=== PATIENT | male | born 1950 | race Caucasian/White ===

== ENCOUNTER → 2018-03-14 | Outpatient (CLI) | payer OTHER ==
[2018-03-14 21:20] LABS: HEMATOCRIT 46.3 % (42.0-52.0); HEMOGLOBIN 15.4 g/dl (13.5-17.5); MEAN CORPUSCULAR HEMOGLOBIN 30.9 pg (27.0-33.0); MEAN CORPUSCULAR HGB CONC 33.3 g/dl (32.0-36.5); MEAN CORPUSCULAR VOLUME 92.8 fl (80.0-96.0); PLATELET COUNT, AUTOMATED 199 10^3/uL (150-450); RED BLOOD COUNT 4.99 10^6/uL (4.30-6.10)
[2018-03-14 21:21] LABS: URINE TOTAL PROTEIN 15.8 MG/DL (0-12)
[2018-03-14 21:22] LABS: INR 1.31; PROTHROMBIN TIME 16.5 SECONDS (12.1-14.4)
[2018-03-14 21:33] LABS: C REACTIVE PROTEIN QUANTITATIV < 0.30 MG/DL (0.00-0.30); TOTAL PROTEIN 6.8 GM/DL (6.4-8.2)
[2018-03-14 21:34] LABS: HEMOGLOBIN A1c 5.8 %
[2018-03-14 21:35] LABS: FOLATE 7.7 NG/ML (>5.4); VITAMIN B12 LEVEL 932 PG/ML (247-911)
[2018-03-16 11:28] LABS: UPEP INTERPRETATION NO M-SPIKE NOTED; URINE VOLUME RANDOM ML
[2018-03-16 13:58] LABS: ALBUMIN 4.09 GM/DL (3.29-5.55); ALBUMIN % 60.1 % (55.8-66.1)
[2018-03-16 13:59] LABS: ALPHA-1-GLOBULINS 0.27 GM/DL (0.17-0.41); ALPHA-2-GLOBULINS 0.67 GM/DL (0.42-0.99); ALPHA-2-GLOBULINS % 9.8 % (7.1-11.8); BETA-1-GLOBULINS 0.43 GM/DL (0.28-0.60); BETA-1-GLOBULINS % 6.3 % (4.7-7.2); BETA-2-GLOBULINS 0.44 GM/DL (0.19-0.55); BETA-2-GLOBULINS % 6.5 % (3.2-6.5); GAMMA GLOBULIN % 13.3 % (11.1-18.8)
[2018-03-20 14:14] LABS: ANTINUCLEAR ANTIBODIES DIRECT Negative (Negative); HLA-B27 Negative (.); Lyme Disease IgG/IgM Antibodie <0.91 ISR (0.00-0.90); Lyme Disease IgM Ab Quantitati <0.80 index (0.00-0.79)
== END ==
LOC: M WUC 16:26
PROVIDERS: ATTEND Physician Assistant
DX: Z01.812 Encounter for preprocedural laboratory examination (principal)

== ENCOUNTER → 2018-04-04 | Outpatient (CLI) | payer OTHER ==
[2018-04-04 15:56] LABS: INR 0.96; PARTIAL THROMBOPLASTIN TIME 29.2 SECONDS (25.4-37.6); PROTHROMBIN TIME 12.9 SECONDS (12.1-14.4)
== END ==
LOC: M WUC 14:17
PROVIDERS: ATTEND Physical Medicine & Rehabilitation
DX: Z01.812 Encounter for preprocedural laboratory examination (principal)

== ENCOUNTER → 2018-07-20 | Outpatient (REF) | payer OTHER | LOC: M LAB REF 17:01 | PROVIDERS: ATTEND Internal Medicine | DX: J02.9 Acute pharyngitis, unspecified (principal) ==

== ENCOUNTER 2018-08-10 21:39 | Emergency (ER) | payer OTHER ==
[~2018-08-10] VITALS: Ht 180.3 cm; Wt 110.9 kg
[2018-08-10] MEDS ORDERED: latanoprost (21:57)
[2018-08-10] MEDS ORDERED: DORZ2SOL4 (21:57)
[2018-08-10] MEDS ORDERED: LOSA100T50 (21:57)
[2018-08-10] MEDS ORDERED: GABA-843 (21:57)
[2018-08-10 22:20] LABS: BASO # 0.1 10^3/uL (0.0-0.2); BASO % 0.6 % (0.0-1.0); EOS # 0.2 10^3/uL (0.0-0.50); HEMATOCRIT 35.6 % (42.0-52.0); HEMOGLOBIN 12.3 g/dl (13.5-17.5); LYMPH # 0.9 10^3/uL (1.5-4.5); LYMPH % 9.9 % (24.0-44.0); MEAN CORPUSCULAR HEMOGLOBIN 31.8 pg (27.0-33.0); MEAN CORPUSCULAR HGB CONC 34.6 g/dl (32.0-36.5); MONO # 1.3 10^3/uL (0.0-0.8); MONO % 14.1 % (0.0-5.0); NEUTROPHILS # 6.6 10^3/uL (1.8-7.7); NEUTROPHILS % 73.1 % (36.0-66.0); PLATELET COUNT, AUTOMATED 223 10^3/uL (150-450); RED BLOOD COUNT 3.87 10^6/uL (4.30-6.10); WHITE BLOOD COUNT 9.1 10^3/uL (4.0-10.0)
[2018-08-10] MEDS ORDERED: GI COCKTAIL 50ML BTL(HYOSCYAMINE/MAALOX/LIDOCAINE VISCOUS)(1:3:1) PO ONE (22:30)
[2018-08-10 22:47] LABS: ALBUMIN 2.7 GM/DL (3.2-5.2); ALT/SGPT 74 U/L (12-78); BILIRUBIN,DIRECT 0.2 MG/DL (0.0-0.2); BILIRUBIN,TOTAL 0.4 MG/DL (0.2-1.0); BLOOD UREA NITROGEN 14 MG/DL (7-18); CARBON DIOXIDE LEVEL 21 MEQ/L (21-32); CHLORIDE LEVEL 109 MEQ/L (98-107); CPK CREATINE PHOSPHOKINASE 209 U/L (39-308); CREATININE FOR GFR 0.98 MG/DL (0.70-1.30); GLOMERULAR FILTRATION RATE > 60.0 (>49); GLUCOSE, FASTING 116 MG/DL (70-100); MB/CK RELATIVE INDEX 0.91 (< OR =4); POTASSIUM SERUM 3.8 MEQ/L (3.5-5.1); SODIUM LEVEL 139 MEQ/L (136-145); TOTAL PROTEIN 6.5 GM/DL (6.4-8.2); TROPONIN I 0.03 NG/ML (< 0.10)
[2018-08-10] MEDS ORDERED: NS 500 ML IV ONE (23:15)
[2018-08-10] MEDS ORDERED: KETOROLAC 30 MG/ML VIAL (J1885) IV ONE (23:30)
[2018-08-10] MEDS ORDERED: ISOVUE-370 76% 100ML VIAL (Q9967) As Ordered ONE (23:40)
[2018-08-11] MEDS ORDERED: IPRATROPIUM 0.5MG/ALBUTEROL 2.5MG INH SOL UD 3ML (DUONEB)(J7620) NEB ONE (01:00)
--- NOTE | 2018-08-11 01:04 | REPVR ---
EXAM: CT Angiography Chest With Contrast EXAM DATE/TIME: 08/10/2018 11:46 PM CLINICAL HISTORY: 67 years old, male; Chest pain; Type not specified TECHNIQUE: Imaging protocol: Axial computed tomographic angiography images of the chest with intravenous contrast using CT angiography protocol. Coronal and sagittal reformatted images were created and reviewed. 3D rendering: MIP reconstructed images were created and reviewed. Radiation optimization: All CT scans at this facility use at least one of these dose optimization techniques: automated exposure control; mA and/or kV adjustment per patient size (includes targeted exams where dose is matched to clinical indication); or iterative reconstruction. Contrast material: ISOVUE 370; Contrast volume: 100 ml; Contrast route: IV COMPARISON: CR PORTABLE CHEST X-RAY 08/10/2018 10:16 PM FINDINGS: Peripheral pulmonary artery evaluation limited by cardiac and respiratory motion artifact. Central pulmonary arteries show no intraluminal defect suggestive of clot. No thoracic aortic aneurysm or dissection. No pleural effusion or pneumothorax. Pulmonary vascular/interstitial pattern does not suggest active pulmonary edema. No evidence of pericardial effusion of significance. No suspicious lung mass or air space process. No central endobronchial lesion. Atelectasis is present at the lung bases. Bony structures show no acute fracture or destructive process. Limited visualization of upper abdomen shows no concerning finding. IMPRESSION: No evidence of acute, central pulmonary embolus. Peripheral vessel evaluation is limited by motion No other acute or concerning focal intrathoracic abnormality. Small hiatal hernia. This can be a source of chest pain in the setting of GE reflux Electronically signed by: Tom Nielsen On 08/11/2018 01:03:59 AM
[2018-08-11] MEDS ORDERED: dexameTHASONE 20 MG/5 ML VIAL (J1100) IV ONE (01:15)
--- NOTE | 2018-08-11 02:10 | REP ---
Clinical: Acute chest pain . Comparison: 08/08/2018 . Findings: The mediastinum and cardiac silhouette are stable and within normal limits for portable technique. Trace left basilar atelectasis cannot be excluded along with possible small pleural reaction. No focal consolidation. No significant effusion. No pneumothorax. Skeletal structures are intact. Impression: Cannot exclude trace left basilar atelectasis and small pleural reaction. Electronically Signed by Omer Howell MD 08/11/2018 02:02 A
[2018-08-11 02:49] VITALS: BP 105/60
[2018-08-11 02:51] LABS: MB/CK RELATIVE INDEX 0.71 (< OR =4); TROPONIN I 0.03 NG/ML (< 0.10)
--- NOTE | 2018-08-12 08:26 | ECGEPIP ---
[facility] - ED Test Date: 2018-08-10 Pat Name: LUAN BEDOYA Department: Room: - Gender: Male Assistant Teaching Professor: miguelito : 1950 Requested By: THOM Krishna Order Number: [id number] Reading MD: Esvin Alva Measurements Intervals [place] Rate: 100 P: 46 GA: 152 QRS: QRSD: 101 T: 39 QT: 338 QTc: 437 Interpretive Statements SINUS TACHYCARDIA Left axis deviation Comparison tracing not on file Electronically Signed on 08-12-2018 8:26:36 EDT by Esvin Alva
--- NOTE | 2018-08-12 08:34 | ECGEPIP ---
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
== END 2018-08-11 03:47 | disposition home or self-care (01) ==
LOC: M ED 21:39
DX: R07.9 Chest pain, unspecified (principal); R00.0 Tachycardia, unspecified; K44.9 Diaphragmatic hernia without obstruction or gangrene; I10 Essential (primary) hypertension; D64.9 Anemia, unspecified; Z87.891 Personal history of nicotine dependence; Z79.899 Other long term (current) drug therapy
CPT/HCPCS: 71045; 71275; 80048; 80076; 81001; 82550; 82553; 84484; 85025; 86140; 87040; 87486; 87581; 87633; 87798; 93005; 93041; 94640; 94760; 96361; 96374; 96375; 99285; J1100; J1885; Q9967

== ENCOUNTER → 2018-09-18 | Outpatient (REF) | payer OTHER ==
[~2018-09-18] MED LIST: DORZ2SOL4; GABA-843; LOSA100T50; latanoprost
[2018-09-18 12:46] LABS: PERCENT SATURATION 30.8 % (19.7-50.0)
== END ==
LOC: M LAB REF 12:18
PROVIDERS: ATTEND Internal Medicine
DX: D64.9 Anemia, unspecified (principal)

== ENCOUNTER → 2020-11-21 | Outpatient (CLI) | payer OTHER ==
[~2020-11-21] MED LIST changes: +ACET-897 PO; +DSS100CA PO; +ECOT81TA5 PO; +FISH1000 PO; +GABA-282; -GABA-843; +LATA0.0015; +NAPR-885 PO; +PREG150C; +PRESCAP PO; +[UNRECOGNIZED DRUG - CODE] PO
== END ==
LOC: M LABSMTC 10:37
PROVIDERS: ATTEND Anesthesiology
DX: Z01.812 Encounter for preprocedural laboratory examination (principal); Z20.822 Contact with and (suspected) exposure to COVID-19

== ENCOUNTER 2020-11-26 08:28 | Day surgery (SDC) | payer BC ==
[~2020-11-26] VITALS: Ht 180.3 cm; Wt 102.1 kg
[~2020-11-26 08:28] MED LIST changes: +LIDOCAINE 2% 100MG/5ML SDV (FOR ANES.) As Ordered ONE; +NS 1,000 ML IV ONE; +propofoL 200 MG/20 ML VIAL As Ordered ONE
--- NOTE | 2020-11-26 10:46 | ROOR ---
Patient Name: Arron Dietz Procedure Date: 11/26/2020 10:20 AM Date of : 1950 Age: 70 Room: [facility] Gender: Male Note Status: Finalized Procedure: Total Colonoscopy to Cecum Indications: High risk colon cancer surveillance: Personal history of colonic polyps, Last colonoscopy: 2011 Providers: Guillermo Galeano MD Referring MD: CASSY KOHLER JR, MD Requesting Provider: Medicines: Monitored Anesthesia Care Complications: No immediate complications. Procedure: Pre-Anesthesia Assessment: - The heart rate, respiratory rate, oxygen saturations, blood pressure, adequacy of pulmonary ventilation, and response to care were monitored throughout the procedure. The Colonoscope was introduced through the anus and advanced to the cecum, identified by appendiceal orifice and ileocecal valve. The colonoscopy was performed without difficulty. The patient tolerated the procedure well. The quality of the bowel preparation was excellent. Findings: The perianal and digital rectal examinations were normal. Non-bleeding internal hemorrhoids were found during retroflexion. The hemorrhoids were small and Grade I (internal hemorrhoids that do not prolapse). No other significant abnormalities were identified in a careful examination of the remainder of the colon. The exam was otherwise without abnormality on direct and retroflexion views. Impression: - Non-bleeding internal hemorrhoids. - The examination was otherwise normal on direct and retroflexion views. - No specimens collected. - The exam was otherwise normal to the cecum. Recommendation: - Patient has a contact number available for emergencies. The signs and symptoms of potential delayed complications were discussed with the patient. Return to normal activities tomorrow. Written discharge instructions were provided to the patient. - High fiber diet. - Discharge patient to home. - Continue present medications. - Repeat colonoscopy is not recommended for surveillance. - Return to referring physician. - The findings and recommendations were discussed with the patient. Procedure Code(s): --- Professional --- G0105, Colorectal cancer screening; colonoscopy on individual at high risk Diagnosis Code(s): --- Professional --- Z86.010, Personal history of colonic polyps K64.0, First degree hemorrhoids CPT copyright 2019 [employer]. All rights reserved. The codes documented in this report are preliminary and upon bronze plater review may be revised to meet current compliance requirements. Guillermo Galeano MD Guillermo Galeano MD 11/26/2020 10:46:09 AM Electronically signed by Guillemro Galeano MD Number of Addenda: 0 Note Initiated On: 11/26/2020 10:20 AM Estimated Blood Loss: Estimated blood loss: none.
[2020-11-26 11:00] VITALS: BP 125/85
== END 2020-11-26 11:11 | disposition home or self-care (01) ==
LOC: M OPP 08:28
PROVIDERS: ATTEND Internal Medicine Gastroenterology
DX: Z12.11 Encounter for screening for malignant neoplasm of colon (principal); Z86.010 Personal history of colon polyps; K64.0 First degree hemorrhoids; Z79.82 Long term (current) use of aspirin; Z79.899 Other long term (current) drug therapy; Z88.8 Allergy status to other drugs, medicaments and biological substances; Z87.891 Personal history of nicotine dependence

== ENCOUNTER → 2020-12-12 | Outpatient (REF) | payer BC ==
[~2020-12-12] MED LIST changes: -LIDOCAINE 2% 100MG/5ML SDV (FOR ANES.) As Ordered ONE; -NS 1,000 ML IV ONE; -propofoL 200 MG/20 ML VIAL As Ordered ONE
[2020-12-12 17:07] LABS: BLOOD UREA NITROGEN 13 MG/DL (7-18); GLOMERULAR FILTRATION RATE > 60.0 (>42)
== END ==
LOC: M WUC 15:40
PROVIDERS: ATTEND Pain Medicine Interventional Pain Medicine
DX: M96.1 Postlaminectomy syndrome, not elsewhere classified (principal)

== ENCOUNTER → 2020-12-19 | Outpatient (CLI) | payer BC ==
--- NOTE | 2020-12-19 16:47 | REPVR ---
PROCEDURE INFORMATION: Exam: MR Lumbar Spine Without and With Contrast Exam date and time: 12/19/2020 3:24 PM Age: 70 years old Clinical indication: Low back pain; Prior surgery; Surgery date: 6+ months; Surgery type: Laminectomy; Additional info: Post laminectomy syndrome TECHNIQUE: Imaging protocol: Multiplanar magnetic resonance images of the lumbar spine without and with intravenous contrast. Contrast material: PROHANCE; Contrast volume: 20 ml; Contrast route: INTRAVENOUS (IV); COMPARISON: No relevant prior studies available. FINDINGS: Vertebrae: Unremarkable. Spinal cord: Normal signal. No cord compression. Straightening of normal lumbar lordosis. Grade 1 spondylolisthesis L2-L3 with 3.2 mm retrolisthesis L3 with respect to L2. Grade 1 spondylolisthesis L3-L4 with the 4.6 mm anterolisthesis L4 with respect L3. Previous laminectomy at L2, L3 and L4. Loss of normal T2 signal within the intervertebral discs at L1-L2, L4-L5 and L5-S1 reflects disc desiccation. L1-L2: No significant disc disease.. No significant spinal canal stenosis. No neural foraminal stenosis. L2-L3: Narrowed intervertebral disc space. Broad-based posterior disc bulge with the right posterolateral disc protrusion that narrows the right lateral recess and impresses upon the ventral margin of the thecal sac there is narrowing of the left lateral recess.. There is enhancement of the facet joints.. No significant spinal canal stenosis. Moderate to severe right foraminal stenosis. . L3-L4: Circumferential annulus bulge. Narrowed lateral recesses bilaterally.. No significant spinal canal stenosis. Mild to moderate bilateral foraminal stenosis. L4-L5: Circumferential annulus bulge. Hypertrophic facet arthropathy and hypertrophy of the ligamentum flavum. Moderate narrowing left lateral recess. There is enhancement of the facet joints.. No significant spinal canal stenosis. Mild to moderate left foraminal stenosis. L5-S1: No significant disc disease. No significant spinal canal stenosis. No neural foraminal stenosis. Soft tissues: Infrarenal para-aortic lymph node measuring 3 x 2.2 cm IMPRESSION: 1. Postoperative changes within the lumbar spine with no evidence of abscess or epidural fluid accumulation. 2. Right posterolateral disc protrusion at L2-L3 with narrowing of the right lateral recess and right foraminal stenosis. 3. Multilevel degenerative disc disease and facet arthropathy as described above Electronically signed by: Rosario Joseph On 12/19/2020 16:47:12 PM
== END ==
LOC: M PLARAD 13:47
PROVIDERS: ATTEND Pain Medicine Interventional Pain Medicine
DX: M96.1 Postlaminectomy syndrome, not elsewhere classified (principal)

== ENCOUNTER → 2021-12-23 | Outpatient (REF) | payer BC ==
[~2021-12-23] MED LIST changes: +LOSA100T45; -LOSA100T50
== END ==
LOC: M LAB REF 09:52
PROVIDERS: ATTEND Internal Medicine
DX: R19.7 Diarrhea, unspecified (principal)

== ENCOUNTER → 2023-06-02 | Outpatient (REF) | payer BC ==
[~2023-06-02] MED LIST changes: -LOSA100T45; +LOSA100T46; -PREG150C; +PREG150C2
== END ==
LOC: M LAB REF 09:05
PROVIDERS: ATTEND Internal Medicine
DX: R19.7 Diarrhea, unspecified (principal)

== ENCOUNTER → 2023-06-16 | Outpatient (REF) | payer BC | LOC: M LAB REF 17:17 | PROVIDERS: ATTEND Internal Medicine | DX: R74.8 Abnormal levels of other serum enzymes (principal) ==

== ENCOUNTER → 2023-06-30 | Outpatient (CLI) | payer BC ==
[~2023-06-30] MED LIST changes: +GASTROGRAFIN SOLUTION 30ML As Ordered ONE; +ISOVUE-370 76% 100ML VIAL As Ordered ONE
== END ==
LOC: M RAD 12:18
PROVIDERS: ATTEND Internal Medicine
DX: R74.8 Abnormal levels of other serum enzymes (principal)

== ENCOUNTER → 2023-07-06 | Outpatient (REF) | payer BC ==
[~2023-07-06] MED LIST changes: -GASTROGRAFIN SOLUTION 30ML As Ordered ONE; -ISOVUE-370 76% 100ML VIAL As Ordered ONE
[2023-07-06 13:15] LABS: INR 1.06; PROTHROMBIN TIME 13.5 SECONDS (12.5-14.5)
== END ==
LOC: M LAB REF 11:59
PROVIDERS: ATTEND Internal Medicine
DX: Z01.818 Encounter for other preprocedural examination (principal)

== ENCOUNTER → 2023-07-27 | Outpatient (CLI) | payer BC ==
[~2023-07-27] MED LIST changes: +DORZ2SOL20 OU; +KP F1200 PO; -LATA0.0015; +LATA0.0015 OU; +LIDOCAINE 1% MDV 20ML VIAL As Ordered ONE; -LOSA100T46; +LOSA100T46 PO; +META28.32 PO; -PREG150C2; +PREG150C2 PO
[2023-07-27 13:44] VITALS: TEMP 97.8
[2023-07-27 14:50] VITALS: BP 128/67; O2SAT 97
== END ==
LOC: M IRPRO 12:42
PROVIDERS: ATTEND Internal Medicine
DX: R59.9 Enlarged lymph nodes, unspecified (principal); C82.90 Follicular lymphoma, unspecified, unspecified site

== ENCOUNTER → 2023-08-09 | Outpatient (REF) | payer BC ==
[~2023-08-09] MED LIST changes: -LIDOCAINE 1% MDV 20ML VIAL As Ordered ONE
[2023-08-09 19:58] LABS: BASOPHILS 1 % (0-1); LYMPHOCYTES 1 % (16-44); MONOCYTES 13 % (0-5); NEUTROPHILS 85 % (28-66)
[2023-08-09 19:59] LABS: OVALOCYTES 1+; PLATELET ESTIMATE INCREASED (NORMAL); POIKILOCYTOSIS 1+
[2023-08-09 20:00] LABS: ANISOCYTOSIS 1+; POLYCHROMASIA 1+
[2023-08-10 18:54] LABS: PERCENT SATURATION 6.4 % (19.7-50.0)
[2023-08-10 18:59] LABS: FOLATE 5.5 NG/ML (>5.4)
== END ==
LOC: M LAB REF 18:07
PROVIDERS: ATTEND Internal Medicine
DX: D72.9 Disorder of white blood cells, unspecified (principal)

== ENCOUNTER 2023-09-02 09:28 | Emergency (ER) | payer BC ==
[~2023-09-02] VITALS: Ht 177.8 cm; Wt 104.5 kg
[~2023-09-02 09:28] MED LIST changes: +IBUP1TAB7 PO; +TRAM50TA2 PO
[2023-09-02 10:04] LABS: VENOUS BASE EXCESS -1.2 (-2.0-2.0); VENOUS HCO3 23.2 MMOL/L (23.0-27.0); VENOUS O2 SATURATION 62.6 % (60.0-80.0); VENOUS PARTIAL PRESSURE CO2 36.9 mmHg (38.0-50.0); VENOUS PARTIAL PRESSURE O2 32.6 mmHg (30.0-50.0); VENOUS PH 7.416 UNITS (7.330-7.430); VENOUS TOTAL CO2 24.3 MMOL/L (24.0-28.0)
[2023-09-02 10:07] LABS: BASO % 0.1 % (0.0-1.0); EOS % 0.1 % (0.0-3.0); HEMOGLOBIN 7.4 g/dl (13.5-17.5); LYMPH # 0.4 10^3/uL (1.5-5.0); LYMPH % 2.4 % (24.0-44.0); MEAN CORPUSCULAR HEMOGLOBIN 23.1 pg (27.0-33.0); MEAN CORPUSCULAR HGB CONC 29.6 g/dl (32.0-36.5); MEAN CORPUSCULAR VOLUME 78.1 fl (80.0-96.0); MONO # 1.7 10^3/uL (0.0-0.8); MONO % 11.8 % (2.0-8.0); NEUTROPHILS # 12.2 10^3/uL (1.5-8.5); NEUTROPHILS % 84.6 % (36.0-66.0); PLATELET COUNT, AUTOMATED 385 10^3/uL (150-450); WHITE BLOOD COUNT 14.5 10^3/uL (4.0-10.0)
[2023-09-02] MEDS: ACETAMINOPHEN TAB 650MG DOSE (2X325MG) PO ONE (10:17)
[2023-09-02 10:19] LABS: INR 1.32; PARTIAL THROMBOPLASTIN TIME 36.3 SECONDS (24.8-34.2); PROTHROMBIN TIME 15.9 SECONDS (12.5-14.5)
[2023-09-02 10:38] LABS: ALBUMIN 2.1 G/DL (3.2-5.2); ALKALINE PHOSPHATASE 454 U/L (46-116); ALT/SGPT 21 U/L (7.0-40); AMYLASE 35 U/L (30-118); AST/SGOT 20 U/L (<34); BILIRUBIN,DIRECT 0.3 MG/DL (<0.4); BILIRUBIN,TOTAL 0.7 MG/DL (0.3-1.2); BLOOD UREA NITROGEN 11 MG/DL (9-23); CALCIUM LEVEL 8.3 MG/DL (8.3-10.6); CARBON DIOXIDE LEVEL 24 MMOL/L (20-31); CHLORIDE LEVEL 105 MMOL/L (98-107); CREATININE FOR GFR 0.62 MG/DL (0.70-1.30); GLOMERULAR FILTRATION RATE > 60.0 (>42); GLUCOSE, FASTING 121 MG/DL (74-106); POTASSIUM SERUM 4.2 MMOL/L (3.5-5.1); SODIUM LEVEL 136 MMOL/L (136-145); TOTAL PROTEIN 5.8 G/DL (5.7-8.2)
[2023-09-02 10:50] LABS: PROCALCITONIN 0.55 ng/ml
[2023-09-02 11:37] LABS: APPEARANCE, URINE HAZY (CLEAR); BACTERIA, URINE AUTO NEGATIVE (NEGATIVE); BILIRUBIN, URINE AUTO NEGATIVE (NEGATIVE); BLOOD, URINE BLOOD NEGATIVE (NEGATIVE); COLOR, URINE YELLOW (YELLOW); GLUCOSE, URINE (UA) AUTO NEGATIVE (NEGATIVE); KETONE, URINE AUTO NEGATIVE (NEGATIVE); LEUKOCYTE ESTERASE, URINE AUTO NEGATIVE (NEGATIVE); NITRITE, URINE AUTO NEGATIVE (NEGATIVE); PROTEIN, URINE AUTO 2+ mg/dL (NEGATIVE); RBC, URINE AUTO 0 /HPF (0-3); SPECIFIC GRAVITY URINE AUTO 1.014 (1.002-1.035); SQUAMOUS EPITHELIAL CELL UR AU 0 /HPF (0-6); UROBILINOGEN, URINE AUTO 0.2 mg/dL (0.0-2.0); WBC, URINE AUTO 4 /HPF (0-3)
[2023-09-02] MEDS ORDERED: OMEP40CA5 (12:14)
[2023-09-02] MEDS ORDERED: DORZ2SOL4 OU (12:14)
[2023-09-02] MEDS ORDERED: VYZU0.02 (12:14)
[2023-09-02] MEDS: PREGABALIN 75 MG CAP(LYRICA) PO ONE (12:25)
[2023-09-02] MEDS: IBUPROFEN 800 MG TAB PO ONE (12:25)
[2023-09-02 12:26] VITALS: BP 117/64
[2023-09-02] MEDS: LOSARTAN 50MG TABLET PO ONE (12:26)
[2023-09-02] MEDS: traMADol 50 MG TAB PO ONE (12:27)
[2023-09-02] MEDS ORDERED: PRESCAP PO (14:28)
[2023-09-02] MEDS ORDERED: XALA0.007 OU (14:28)
[2023-09-02] MEDS ORDERED: VITA100024 PO (14:31)
[2023-09-02] MEDS ORDERED: THERTAB52 PO (14:31)
[2023-09-02] MEDS ORDERED: FERR325T3 PO (14:31)
[2023-09-02] MEDS ORDERED: FEXO-157 PO (14:31)
[2023-09-02] MEDS ORDERED: HOME MED LIST COMPLETE! XX SCH (14:35)
[2023-09-02] MEDS ORDERED: OSEL75CA PO (15:27)
[2023-09-02] MEDS: OSELTAMIVIR PHOSPHATE 75 MG CAP (TAMIFLU) PO ONE (15:36)
[2023-09-02 15:45] VITALS: BP 125/64; TEMP 98.6; O2SAT 97
== END 2023-09-02 15:57 | disposition home or self-care (01) ==
LOC: M ED 09:28 → EDBD 09:28 → M ED 15:57
DX: J09.X2 Influenza due to identified novel influenza A virus with other respiratory manifestations (principal); I10 Essential (primary) hypertension; R00.0 Tachycardia, unspecified; Z88.8 Allergy status to other drugs, medicaments and biological substances; Z79.1 Long term (current) use of non-steroidal anti-inflammatories (NSAID); Z79.810 Long term (current) use of selective estrogen receptor modulators (SERMs); Z79.899 Other long term (current) drug therapy

== ENCOUNTER → 2023-09-13 | Outpatient (CLI) | payer BC ==
[~2023-09-13] MED LIST changes: +ALLO100T PO; +COLA100C5 PO; +DORZ2SOL4 OU; +FERR325T3 PO; +FEXO-157 PO; +K 10100T PO; +LIDOCAINE 1% MDV 20ML VIAL As Ordered ONE; +OMEP40CA5; +ONDA-284 PO; +OSEL75CA PO; +PROC10TA5 PO; +THERTAB52 PO; +VITA100024 PO; +VYZU0.02; +XALA0.007 OU
[2023-09-13 12:10] VITALS: TEMP 97.2
[2023-09-13 13:02] LABS: BASO % 0.3 % (0.0-1.0); EOS % 0.3 % (0.0-3.0); HEMATOCRIT 21.3 % (42.0-52.0); LYMPH # 0.3 10^3/uL (1.5-5.0); LYMPH % 2.5 % (24.0-44.0); MEAN CORPUSCULAR HEMOGLOBIN 22.2 pg (27.0-33.0); MEAN CORPUSCULAR HGB CONC 29.1 g/dl (32.0-36.5); MEAN CORPUSCULAR VOLUME 76.3 fl (80.0-96.0); MONO # 1.9 10^3/uL (0.0-0.8); NEUTROPHILS # 10.2 10^3/uL (1.5-8.5); NEUTROPHILS % 81.1 % (36.0-66.0); PLATELET COUNT, AUTOMATED 563 10^3/uL (150-450); RED BLOOD COUNT 2.79 10^6/uL (4.30-6.10); WHITE BLOOD COUNT 12.6 10^3/uL (4.0-10.0)
[2023-09-13 13:03] LABS: HEMOGLOBIN 6.2 g/dl (13.5-17.5)
[2023-09-13 13:45] VITALS: BP 134/75; O2SAT 98
== END ==
LOC: M IRPRO 11:55
PROVIDERS: ATTEND Specialist
DX: C85.90 Non-Hodgkin lymphoma, unspecified, unspecified site (principal)

== ENCOUNTER → 2023-09-20 | Outpatient (CLI) | payer BC ==
[~2023-09-20] MED LIST changes: -ALLO100T PO; -K 10100T PO; -LIDOCAINE 1% MDV 20ML VIAL As Ordered ONE; -ONDA-284 PO
[2023-09-20 13:20] LABS: BASO # 0.1 10^3/uL (0.0-0.2); BASO % 0.4 % (0.0-1.0); EOS % 0.4 % (0.0-3.0); HEMATOCRIT 26.9 % (42.0-52.0); HEMOGLOBIN 7.7 g/dl (13.5-17.5); LYMPH # 0.2 10^3/uL (1.5-5.0); LYMPH % 1.8 % (24.0-44.0); MEAN CORPUSCULAR HEMOGLOBIN 22.3 pg (27.0-33.0); MEAN CORPUSCULAR HGB CONC 28.6 g/dl (32.0-36.5); MONO # 1.7 10^3/uL (0.0-0.8); MONO % 14.6 % (2.0-8.0); NEUTROPHILS # 9.3 10^3/uL (1.5-8.5); NEUTROPHILS % 81.9 % (36.0-66.0); PLATELET COUNT, AUTOMATED 436 10^3/uL (150-450); RED BLOOD COUNT 3.45 10^6/uL (4.30-6.10); WHITE BLOOD COUNT 11.4 10^3/uL (4.0-10.0)
[2023-09-20 13:29] LABS: APPEARANCE, URINE CLOUDY (CLEAR); BACTERIA, URINE AUTO NEGATIVE (NEGATIVE); BILIRUBIN, URINE AUTO NEGATIVE (NEGATIVE); BLOOD, URINE BLOOD NEGATIVE (NEGATIVE); COLOR, URINE YELLOW (YELLOW); GLUCOSE, URINE (UA) AUTO NEGATIVE (NEGATIVE); KETONE, URINE AUTO NEGATIVE (NEGATIVE); LEUKOCYTE ESTERASE, URINE AUTO NEGATIVE (NEGATIVE); MUCUS, URINE SMALL (NEGATIVE); NITRITE, URINE AUTO NEGATIVE (NEGATIVE); PROTEIN, URINE AUTO 2+ mg/dL (NEGATIVE); RBC, URINE AUTO 2 /HPF (0-3); SPECIFIC GRAVITY URINE AUTO 1.016 (1.002-1.035); SQUAMOUS EPITHELIAL CELL UR AU 0 /HPF (0-6); UROBILINOGEN, URINE AUTO 0.2 mg/dL (0.0-2.0); WBC, URINE AUTO 2 /HPF (0-3)
[2023-09-20 13:47] LABS: ALBUMIN 2.1 G/DL (3.2-5.2); ALKALINE PHOSPHATASE 393 U/L (46-116); ALT/SGPT 64 U/L (7.0-40); AST/SGOT 23 U/L (<34); BILIRUBIN,TOTAL 0.5 MG/DL (0.3-1.2); BLOOD UREA NITROGEN 12 MG/DL (9-23); CALCIUM LEVEL 8.5 MG/DL (8.3-10.6); CARBON DIOXIDE LEVEL 23 MMOL/L (20-31); CHLORIDE LEVEL 104 MMOL/L (98-107); CREATININE FOR GFR 0.52 MG/DL (0.70-1.30); GLOMERULAR FILTRATION RATE > 60.0 (>42); GLUCOSE, FASTING 110 MG/DL (74-106); POTASSIUM SERUM 4.4 MMOL/L (3.5-5.1); SODIUM LEVEL 136 MMOL/L (136-145); TOTAL PROTEIN 5.9 G/DL (5.7-8.2)
== END ==
LOC: M RAD 12:07
PROVIDERS: ATTEND Internal Medicine Hematology & Oncology
DX: R50.9 Fever, unspecified (principal); R05.9 Cough, unspecified

== ENCOUNTER → 2023-09-27 | Outpatient (CLI) | payer BC ==
[~2023-09-27] MED LIST changes: +ALLO100T PO; +ONDA-284 PO
== END ==
LOC: M PLARAD 12:42
PROVIDERS: ATTEND Physician Assistant
DX: C82.90 Follicular lymphoma, unspecified, unspecified site (principal)
CPT/HCPCS: 78815; A9552

== ENCOUNTER → 2023-09-29 | Outpatient (CLI) | payer BC ==
[~2023-09-29] VITALS: Ht 177.8 cm; Wt 93.2 kg
[~2023-09-29] MED LIST changes: +K 10100T PO; +LIDOCAINE 1% MDV 20ML VIAL As Ordered ONE; +MIDAZOLAM INJ 2MG/2ML VIAL As Ordered ONE; +ceFAZolin 2 GM/D5W 50 ML IV BAG As Ordered ONE; +fentaNYL 100 MCG/2 ML INJECTION As Ordered ONE
[2023-09-29 11:30] VITALS: TEMP 97.5
[2023-09-29] MEDS: NS 1,000 ML IV SCH (12:47)
[2023-09-29] MEDS: ceFAZolin SOD 2 GM in IV 1 EA IV ONE (12:47)
[2023-09-29 14:00] VITALS: BP 136/66; O2SAT 96
== END ==
LOC: M IRPRO 11:20
PROVIDERS: ATTEND Specialist
DX: C85.90 Non-Hodgkin lymphoma, unspecified, unspecified site (principal)
CPT/HCPCS: 36561; 99152; C1769; J0690; J2250; J3010

== ENCOUNTER 2023-09-30 15:46 | Outpatient (CLI) | payer BC ==
[~2023-09-30] VITALS: Ht 180.3 cm; Wt 93.2 kg
[~2023-09-30 15:46] MED LIST changes: -LIDOCAINE 1% MDV 20ML VIAL As Ordered ONE; -MIDAZOLAM INJ 2MG/2ML VIAL As Ordered ONE; -ceFAZolin 2 GM/D5W 50 ML IV BAG As Ordered ONE; -fentaNYL 100 MCG/2 ML INJECTION As Ordered ONE
[2023-09-30] MEDS ORDERED: diphenhydrAMINE 50MG/ML VIAL IV ONE (16:20)
[2023-09-30 16:37] VITALS: BP 124/60; TEMP 97.8; O2SAT 100
[2023-09-30] MEDS: diphenhydrAMINE 25MG CAP PO ONE (16:48)
[2023-09-30] MEDS: ACETAMINOPHEN TAB 650MG DOSE (2X325MG) PO ONE (16:48)
[2023-09-30 16:52] VITALS: BP 119/82; TEMP 96.8; O2SAT 98
[2023-09-30 18:02] VITALS: BP 133/64; TEMP 97.1; O2SAT 98
[2023-09-30 18:20] VITALS: BP 133/66; O2SAT 99
[2023-10-03] MEDS ORDERED: LIDO30CR18 TOP (11:21)
== END 2023-09-30 18:20 ==
LOC: M INFU 15:46
PROVIDERS: ATTEND Internal Medicine Hematology & Oncology
DX: C82.90 Follicular lymphoma, unspecified, unspecified site (principal); Z88.8 Allergy status to other drugs, medicaments and biological substances
CPT/HCPCS: 36415; 36430; 86850; 86900; 86901; 86920; P9016

== ENCOUNTER → 2023-12-19 | Outpatient (CLI) | payer BC ==
[~2023-12-19] MED LIST changes: +ALLO100T; -FEXO-157 PO; +FEXO-63 PO; +GABA-1172; -GABA-282; +LIDO30CR18 TOP
== END ==
LOC: M PLARAD 10:18
PROVIDERS: ATTEND Dietitian, Registered
DX: C82.98 Follicular lymphoma, unspecified, lymph nodes of multiple sites (principal)
CPT/HCPCS: 78815; A9552

== ENCOUNTER 2024-02-18 12:40 | Emergency (ER) | payer BC ==
[~2024-02-18] VITALS: Ht 180.3 cm; Wt 93.0 kg
[2024-02-18 13:58] VITALS: BP 172/79; TEMP 97.7; O2SAT 95
== END 2024-02-18 13:59 | disposition home or self-care (01) ==
LOC: M ED 12:40
DX: R07.82 Intercostal pain (principal); W00.0XXA Fall on same level due to ice and snow, initial encounter; I10 Essential (primary) hypertension; Z88.8 Allergy status to other drugs, medicaments and biological substances; Z79.1 Long term (current) use of non-steroidal anti-inflammatories (NSAID); Z79.810 Long term (current) use of selective estrogen receptor modulators (SERMs); Z79.899 Other long term (current) drug therapy

== ENCOUNTER → 2024-04-05 | Outpatient (CLI) | payer BC ==
[~2024-04-05] MED LIST changes: +ISOVUE-370 76% 100ML VIAL As Ordered ONE
== END ==
LOC: M RAD 10:23
PROVIDERS: ATTEND Specialist
DX: C85.90 Non-Hodgkin lymphoma, unspecified, unspecified site (principal)
CPT/HCPCS: 71260; 74177; Q9967

== ENCOUNTER → 2024-05-07 | Outpatient (REF) | payer BC ==
[~2024-05-07] MED LIST changes: -ISOVUE-370 76% 100ML VIAL As Ordered ONE
== END ==
LOC: M LAB REF 18:11
PROVIDERS: ATTEND Internal Medicine
DX: M10.9 Gout, unspecified (principal)

== ENCOUNTER → 2024-07-20 | Outpatient (CLI) | payer BC ==
[~2024-07-20] MED LIST changes: +ISOVUE-370 76% 100ML VIAL ONE
== END ==
LOC: M PLAIMG 08:32
PROVIDERS: ATTEND Specialist
DX: C85.90 Non-Hodgkin lymphoma, unspecified, unspecified site (principal)